=== PATIENT | male | born 1980 | race Caucasian/White ===

== ENCOUNTER → 2020-10-24 15:17 | Outpatient (CLI) | payer OTHER, SELFPAY ==
[2020-10-26 10:46] LABS: Covid-19 Nasal PCR Sendout P&C POSITVE
== END ==
PROVIDERS: PCP Nurse Practitioner; Visit Provider Nurse Practitioner
DX: Z20.822 Contact with and (suspected) exposure to COVID-19 (principal); U07.1 COVID-19
CPT/HCPCS: U0004